=== PATIENT | male | born 1950 | race Caucasian/White ===

== ENCOUNTER 2021-11-29 14:17 | Emergency (ER) | payer MEDICARE, SELFPAY ==
[2021-11-29 14:17] VITALS: BP 178/92; PULSE 73; RESP 16; TEMP 36.8; O2SAT 98; BMI 29.6
[2021-11-29 14:59] LABS: Mucous, Urine 0 SEEN /hpf (<or=2+)
[2021-11-29 15:17] LABS: Color, Urine Yellow (Yellow); Glucose, Dipstick Normal (Normal); Ketone-Dipstick Negative (Negative); Leukocyte Esterase-Dipstick Negative /ul (Negative); Nitrite-Dipstick Negative (Negative); Occult Blood-Urine 250 /ul (Negative); Protein-Dipstick 30 mg/dl (Negative); Specific Gravity, Urine 1.015 (1.002-1.030); Urine Bilirubin Dipstick Negative (Negative); Urine Clarity Clear (Clear); Urine Urobilinogen Normal (Normal)
--- NOTE | 2021-11-29 15:36 | CT_ITS ---
STUDY: CT BRAIN WITHOUT CONTRAST REASON FOR EXAM: Male, 71 years old. injury last week TECHNIQUE: Transaxial CT imaging of the brain was performed without administration of intravenous contrast material. Individualized dose optimization techniques were used for this CT. COMPARISON: None FINDINGS: Normal calvarium. Normal soft tissues. Normal size ventricles and extra-axial spaces for the patient''s age. There are areas of decreased attenuation within the white matter tracts of the supratentorial brain, consistent with microvascular disease changes. Normal basal ganglia and thalami. Normal brainstem. Normal cerebellum. There is no intracranial hemorrhage. There are no findings of an acute ischemic infarction. There is sinus disease. ASPECTS 10 CT/Brain/Head without Contrast IMPRESSION: There are no acute intracranial findings. Electronically Signed: Elia Hwang MD at 16:19 EDT ,
[2021-11-29 15:39] LABS: Red Blood Cells-Urine 10-25 SEEN /hpf (0-5); Squamous Epithelial Cells - UA 0-5 SEEN /hpf (0-5); White Blood Cells 0-5 SEEN /hpf (0-5)
--- NOTE | 2021-11-29 15:39 | EDS_ITS ---
HPI History of Present Illness Chief Complaint: Complaint Detail of Chief Complaint: urinary retention Informant: patient Pain Onset: Today Context: Sudden Onset (when got up to urinate this AM; ur retention, suprapubic pain, low back pain) Timing: Continuous Current Severity: Severe Maximum Severity: Severe Worsened by: nothing Relieved by: nothing Urinary Symptoms Genitourinary Symptoms: Retention Narrative Narrative: Patient woke up this morning unable to urinate. He states for an hour or so he was dribbling only small amounts of urine, still feeling discomfort like he needed to urinate a lot, never had this before. Making good stream of urine recently. [facility] within the last couple years that he may have had an enlarged prostate but he is not sure what that is based on, he did not have a prostate exam or CT scan that he can recall. He denies any recent hematuria. He did get injured on accident 1 week ago tomorrow. Friend was lifting large pieces of wood with a tractor, one of them fell off and hit him in the head. He sustained relatively minor injuries, he states there was bleeding but he did not have any loss of consciousness or neurologic symptoms, he states he cleansed them and allow them to heal on their own without coming to the emergency department. He is on no anticoagulants, just baby aspirin daily in addition to his lisinopril, he he has had no medication changes recently, hospitalizations, or surgeries. [facility] Medical History (Updated 11/29/21 @ 17:[address] Arturo Avila MD) HTN (hypertension) Home Medications aspirin 81 mg capsule 81 mg PO DAILY 11/29/21 [History Last Taken Unknown] lisinopril 20 mg tablet 20 mg PO DAILY 11/29/21 [History Last Taken Unknown] tamsulosin 0.4 mg capsule (Flomax) 0.4 mg PO DAILY #30 caps 11/29/21 [Rx Last Taken Unknown] Allergy/AdvReac Type Severity Reaction Status Date / Time No Known Allergies Allergy Verified 11/29/21 14:46 Social History Smoking Status: Current every day smoker tobacco type: cigarettes ROS ROS ED Constitutional Constitutional ED: Denies chills or fever(s) Eyes Eyes: Denies change in vision or diplopia ENT ENT ED: Denies rhinorrhea or sore throat Cardiovascular Cardiovascular: Denies chest pain or palpitations Respiratory/Chest Respiratory/Chest: Denies cough or dyspnea Gastrointestinal Gastrointestinal: Reports abdominal pain; Denies diarrhea, nausea or vomiting Genitourinary Genitourinary ED: Reports as per HPI and urinary incontinence; Denies dysuria or hematuria Musculoskeletal Musculoskeletal: Reports back pain; Denies neck pain Integumentary Denies abscess or rash Neurologic Neurologic: Denies headache(s), paresthesias or weakness Psychiatric Psychiatric: Denies anxiety or suicidal thoughts EXAM Physical Exam Const Vital Signs: 11/29/21 14:17 11/29/21 17:08 Temperature 98.3 F 97.3 F L Temperature Source Temporal Temporal Pulse Rate 73 68 Respiratory Rate 16 15 Blood Pressure 178/92 H 152/90 H Blood Pressure Mean 120 110 Pulse Ox 98 100 Oxygen Delivery Method Room Air Room Air Positive well nourished and well developed Constitutional Narrative: Well-appearing. Seen after Rodriguez placed. General Appearance ED: well developed and NAD HEENT Reports moist mucous membranes normocephalic and atraumatic Eyes PERRL and EOMs intact bilaterally Neck full ROM and supple Resp normal respiratory effort and clear to auscultation bilaterally Cardio regular rate, regular rhythm and no murmurs GI non-tender and non-distended Auscultation: normoactive bowel sounds Palpation: soft Back/Spine no CVA tenderness General Back: other FROM Extremity normal to inspection General Extremety ED: Negative for edema, pulses abnormal or tenderness General Extremity: Negative for edema or pulses abnormal Neuro oriented x3, CN's II-XII intact bilaterally and no sensory deficits noted Sensorium / Orientation: awake and alert Motor Exam: strength 5/5 throughout Skin no rashes or lesions noted and no wounds MDM MDM MDM Narrative Medical decision making narrative: Nursing placed a Rodriguez just prior to my seeing the patient, he has 1 L of transparent nonbloody yellow urine in the bag and he states he feels much better and his symptoms are resolved. Urinalysis shows no infection. There is microscopic hematuria of unknown significance. Given all this, he does not have symptoms of enlarged prostate or prostatitis, so I added basic labs and a CT of the head to rule out intracranial injury or other pathology such as normal pressure hydrocephalus. Are all unremarkable. For this reason and given the patient a leg bag and a prescription for Flomax, discussed with urology Dr. Cast; he agreed with this. Lab Data Attestation: I reviewed the patient's lab results. Labs: Laboratory Results - last 24 hr 11/29/21 11/29/21 11/29/21 14:55 15:50 15:50 WBC 11.8 H RBC 4.74 Hgb 15.7 Hct 45.1 MCV 95.1 H MCH 33.1 H MCHC 34.8 RDW Std Deviation 43.2 RDW Coeff of Angelika 12.4 Plt Count 217 MPV 9.0 Immature Gran % (Auto) 0.300 Neut % (Auto) 78.3 H Lymph % (Auto) 12.0 L [place] % (Auto) 8.8 Eos % (Auto) 0.3 Baso % (Auto) 0.3 Absolute Neuts (auto) 9.2 H Absolute Lymphs (auto) 1.42 Nucleated RBC % 0 Sodium 142 Potassium 4.1 Chloride 111 H Carbon Dioxide 26.0 Anion Gap 5 BUN 13 Creatinine 1.17 Estim Creat Clear Calc 56.84 Est GFR (MDRD) Af Amer 79 Est GFR (MDRD) Non-Af 66 BUN/Creatinine Ratio 11.1 Glucose 106 Calcium 9.0 Urine Color Yellow Urine Clarity Clear Urine pH 6.0 Ur Specific [place] 1.015 Urine Protein 30 H Urine Glucose (UA) Normal Urine Ketones Negative Urine Occult Blood 250 H Urine Nitrite Negative Urine Bilirubin Negative Urine Urobilinogen Normal Ur Leukocyte Esterase Negative Urine RBC 10-25 SEEN Urine WBC 0-5 SEEN Ur Squamous Epith Cells 0-5 SEEN Urine Bacteria RARE Urine Mucus 0 SEEN Radiography Diagnostic Testing: Clinical Impression(s) from Imaging Studies Brain CT 11/29/21 15:36 IMPRESSION: There are no acute intracranial findings. Electronically Signed: Elia Hwang MD at 16:19 EDT Reading Location ID and State: [facility] / MD , Service support , Discharge Plan Triage Chief Complaint: Complaint ED Provider: Arturo Avila Dx/Rx/DC Orders Clinical Impression: Acute urinary retention, Closed head injury without loss of consciousness Instructions: ED Urinary Retention, Male Prescriptions: New tamsulosin [Flomax] 0.4 mg capsule 0.4 mg PO DAILY Qty: 30 0RF No Action lisinopril 20 mg Tablet 20 mg PO DAILY aspirin 81 mg Capsule 81 mg PO DAILY Primary Care Provider: Care Physician,No Primary Referrals: Braulio Cast MD [Med Staff - Active Staff] - 1 Week (or the [place]) Care Physician,No Primary [Primary Care Provider] - Disposition Disposition: Home, Self Care
[2021-11-29 15:40] LABS: Bacteria RARE /hpf (None Seen)
[2021-11-29 16:03] LABS: Absolute Lymphocyte Count 1.42 X10^3/uL (0.83-4.51); Absolute Neutrophil Count 9.2 X10^3/uL (2.0-7.7); Basophil# 0.04 X10^3/uL; Basophil% 0.3 % (0-1); Eosinophil# 0.04 X10^3/uL; Eosinophils% 0.3 % (0-5); Hematocrit 45.1 % (40-54); Hemoglobin 15.7 g/dL (13.0-16.5); Lymphocyte # 1.42 X10^3/ul (0.83-4.51); Mean Corp Hgb Conc 34.8 g/dL (32-36); Mean Corpuscular Hgb 33.1 pg (27.0-32.0); Mean Corpuscular Volume 95.1 fL (80-94); Monocyte# 1.04 X10^3/uL; Monocyte% 8.8 % (0-10); NRBC Flagged by Analyzer 0 % (0-5); Neutrophil # 9.22 X10^3/uL (2.7-7.7); Neutrophil % 78.3 % (47-70); Platelet Count 217 K/mm3 (150-450); RBC Distribution Width CV 12.4 % (11.6-14.6); RBC Distribution Width SD 43.2 fl (35.1-43.9); Red Blood Count 4.74 M/mm3 (4.6-6.2); White Blood Count 11.8 K/mm3 (4.4-11.0)
[2021-11-29 16:20] LABS: Anion Gap 5 (5-15); BUN 13 mg/dL (7-18); BUN/Creat Ratio 11.1 RATIO (10-20); Chloride 111 mmol/L (98-107); Creatinine, Serum 1.17 mg/dL (0.70-1.30); EST Glomerular Filtration Rate 66 mL/min (>60); Est Glom Filt Rate - Afr Amer 79 mL/min (>60); Estimated Creatinine Clearance 56.84 ml/min; Glucose 106 mg/dL (74-106); Potassium 4.1 mmol/L (3.5-5.1); Sodium Level 142 mmol/L (136-145)
[2021-11-29 17:08] VITALS: BP 152/90; PULSE 68; RESP 15; TEMP 36.3; O2SAT 100
[2021-11-29 18:17] VITALS: BP 162/89; PULSE 69; RESP 17; TEMP 36.3; O2SAT 99
== END 2021-11-29 18:19 | disposition home or self-care (01) ==
PROVIDERS: Emergency Provider Emergency Medicine; Visit Provider Emergency Medicine
DX: R33.9 Retention of urine, unspecified (principal); S09.90XA Unspecified injury of head, initial encounter; R31.29 Other microscopic hematuria; I10 Essential (primary) hypertension; R10.2 Pelvic and perineal pain; F17.210 Nicotine dependence, cigarettes, uncomplicated; W22.8XXA Striking against or struck by other objects, initial encounter
CPT/HCPCS: 51702; 70450; 80048; 81001; 85025; 99283; A4216

== ENCOUNTER 2021-12-24 12:06 | Observation (INO) | payer MEDICARE, SELFPAY ==
[2021-12-24] VITALS (9 sets, daily range): BP systolic 89–128; BP diastolic 57–77; PULSE 54–77; RESP 16–18; TEMP 36.1–36.7; O2SAT 95–100; BMI 29.7
--- NOTE | 2021-12-24 08:42 | EKG12_ITS ---
Test Reason : PRE-OP Blood Pressure : / mmHG Vent. Rate : 070 BPM Atrial Rate : 070 BPM P-R Int : 094 ms QRS Dur : 084 ms QT Int : 408 ms P-R-T Axes : 067 036 056 degrees QTc Int : 440 ms Sinus rhythm with short OR Otherwise normal ECG When compared with ECG of 13-AUG-2013 00:05, No significant change was found Confirmed by TENZIN CHAIREZ, CLIFTON ([id number]), script editor SAMMY MONSIVAIS ([id number]) on 12/31/2021 12:44:07 PM Referred By: Braulio Cast Confirmed By:CLIFTON DAVE MD
[2021-12-24] MEDS: Lactated Ringers 1,000 ML 15 ML IV ×2 (08:50→13:00)
--- NOTE | 2021-12-24 10:40 | PROS_PTH ---
PATIENT: VIC IBARRA LOC: [facility]3 U#:[id number] AGE/SX: 71/M [place] [facility] [place]24/[address]: Dr. Braulio Cast MD : 1950 BED: 1 DIS: 12/25/2021 SPEC #: [id number] RECD: 12/24/21 13:43 STATUS: LUCIO CHINCHILLADillan #: [id number] AUGUSTINE: 12/24/21 10:[address]: Braulio Cast DEPT: SURGICAL PATHOLOGY RECD BY: Denia Marshall ENTERED: 12/27/21 08:40 SP TYPE: TURP OT DR: No Primary Care Phys Tissues: Prostate, NOS Procedures: Surgery Specimen Level IV HEADER OPERATION: Cysto, TUR prostate, [place], litholopaxy of bladder stones PRE-OP DIAGNOSIS: BPH and bladder stones TISSUE SUBMITTED: Prostate tissue and bladder stones MICROSCOPIC DIAGNOSIS Prostate tissue and bladder stone, transurethral resection: Benign prostatic hyperplasia, glandular and stromal type. Focal chronic inflammation. Fragments of stone, clinically bladder stones (gross only). HEENA:shantell 12/28/2021 MICROSCOPIC DESCRIPTION Slides are reviewed. GROSS DESCRIPTION Received is one container labeled with the patient's name and designated prostate tissue and bladder stones. The specimen consists of multiple irregular fragments of pink-pascal, rubbery, soft tissue that in aggregate weigh 24.8 gm and measure in aggregate 7 x 5 x 2.5 cm. Multiple fragments of brown stones measuring 0.1 to 0.7 cm are also noted. Rug Cutter Helper tissue is submitted in ten cassettes. / HEENA:shantell 12/27/2021 TC:5 CPT: 33906
--- NOTE | 2021-12-24 12:09 | DCINST_ITS ---
Discharge Instructions Diet Discharge Diet: No restrictions, Light diet - advance as tolerated and Soft diet Activity Discharge Activity: Return to Normal Activity Follow Up Care Please Follow Up With: Braulio Cast MD When: 2 weeks Test Results: Test results from this visit will be discussed in further detail at your follow- up appointment, if applicable. Discharge Plan Admission Primary Reason for Your Visit: turp Attending Provider: Braulio Cast Primary Care Provider: Care Physician,No Primary Instructions Patient Instructions: TURP Home Recovery Discharge Orders/Prescriptions Prescriptions: New ciprofloxacin HCl [Cipro] 500 mg tablet 500 mg PO BID Qty: 14 0RF Continued lisinopril 20 mg Tablet 20 mg PO DAILY Held aspirin 81 mg Capsule 81 mg PO DAILY Hold Instructions: Resume on 01/07/22. Discontinued dutasteride 0.5 mg Capsule 0.5 mg PO QHS tamsulosin [Flomax] 0.4 mg capsule 0.4 mg PO QHS Referrals / Follow Up: Braulio Cast MD [Med Staff - Active Staff] - Care Physician,No Primary [Primary Care Provider] - Disposition Disposition (needs filled in before D/C Order can be placed): Home, Self Care
--- NOTE | 2021-12-24 12:09 | PCM.HP.STD ---
HPI - General General Date of Service: 12/24/21 HPI Narrative VIC IBARRA, is a 71 M who presents for transurethral resection of the prostate he has a history of retention of urine with a catheter renal resected prostate hopefully open up the channel he understands no guarantees ability urinate after the surgery and he may need to learn self-catheterization. [facility] Medical History (Updated 12/21/21 @ 15:17 by Jennifer Hamilton) Alcohol use Arthritis HTN (hypertension) Indwelling urethral catheter present Leg cramps Prostate disease Smoker Wears dentures Wears glasses Home Medications aspirin 81 mg capsule 81 mg PO DAILY 11/29/21 [History Last Taken 12/17/21] lisinopril 20 mg tablet 20 mg PO DAILY 11/29/21 [History Last Taken 12/24/21] ciprofloxacin HCl 500 mg tablet (Cipro) 500 mg PO BID #14 tabs 12/24/21 [Rx Last Taken Unknown] Allergy/AdvReac Type Severity Reaction Status Date / Time No Known Allergies Allergy Verified 12/24/21 08:56 Surgical History (Updated 12/21/21 @ 15:17 by Jennifer Hamilton) Hx of arthroscopy of right knee Social History Smoking Status: Current some day smoker tobacco type: cigars Vital Signs Vital Signs Vital Signs: 12/24/21 08:59 12/24/21 08:59 Temperature 98.1 F Temperature Source Temporal Pulse Rate 70 Respiratory Rate 16 Respiratory Pattern Normal Blood Pressure 122/73 H Blood Pressure Mean 89 Blood Pressure Source Monitor Blood Pressure Position Semi-Fowlers Blood Pressure Location Right Arm Pulse Ox 98 Oxygen Delivery Method Room Air Weight Weight: 86.183 kg Body Mass Index (BMI) 29.7
--- NOTE | 2021-12-24 12:10 | OP.PCM_ITS ---
Report of Operation Date of Procedure: 12/24/21 Pre-Operative Diagnosis: bph retention of urine Post-Operative Diagnosis: same Surgery/Procedure Performed:: turp and cystolithalopaxy and laser of large bladder stones Description of Surgical Findings:: In the preoperative setting I discussed with the patient how the surgery would be done with expect afterwards. We discussed how a prostate resection is done and we discussed the risk of the surgery including, bleeding, infection, retrograde ejaculation, changes with ejaculation or intercourse,. We discussed the possibility that the resection of the prostate may not alleviate his urinary symptoms. We discussed the small risk of developing scar tissue along the urethral channel and strictures. We also discussed the chance of the prostate could grow back and he may need further surgery or treatment in the future for prostate problems. Patient was taken back to the operating room, timeout procedure was performed, he was identified and marked and placed on the operating room table. He underwent general anesthesia. He was placed in dorsolithotomy position. Penis and testicles were prepped and draped in usual sterile fashion. The urethra and genitals were prepped and draped in usual sterile fashion. Went into the bladder using a 24 Montserratian cystoscope. We used the laser bridge through the scope for continuous irrigation. Then using the laser bridge we introduced a laser fiber into the bladder and the stone in the bladder was trapped against the back wall. The stone was a very large bladder stone (>2.5cm). The stone was then lasered using laser lithotripsy the small little pieces all the pieces were evacuated on the bladder. After all the stones were removed then the scope was removed there was minimal bleeding. Went into the bladder using the visual obturator with a resectoscope. Once inside the bladder identified the right and left ureteral orifice. I then identified the prostate and the anatomy of the prostate. I marked out the area of the sphincter and the verumontanum was identified. I then proceeded with the prostate resection first resected the median lobe. And then resected the right lobe of the prostate. Then to resect the left lobe of the prostate. I then resected the apical tissue of the prostate. This was a complete resection of all obstructive tissue to improve voiding and relieve obstruction. I then made sure that there was no injury to the sphincter or the verumontanum was still intact. At the end of the resection all the chips were Ellik out of the bladder. I then identified the left and right ureteral orifice and these were confirmed to be in good position and effluxing and not injured. The resectoscope was removed, a 22 Montserratian catheter was placed into the bladder on continuous irrigation. And the urine was fairly light pink color and draining normally. He was taken back to the PACU in good condition. Surgeon: Braulio Cast Type of Anesthesia: General Drains: 22fr [address]
[2021-12-24] MEDS: Cefazolin 2 GM in 0.9% Normal Saline 100 ML IV (12:11)
[2021-12-24] MEDS: 0.9% Saline Lock 10 ML Syringe IV (15:32)
[2021-12-24] MEDS: Ciprofloxacin 500 MG Tablet PO (21:40)
[2021-12-25 02:49] VITALS: BP 108/61; PULSE 68; RESP 16; TEMP 36.3; O2SAT 96
[2021-12-25 06:46] VITALS: BP 103/89; PULSE 71; RESP 16; TEMP 36.4; O2SAT 96
[2021-12-25 09:03] VITALS: BP 112/60; PULSE 63; RESP 16; TEMP 36.6; O2SAT 97
[2021-12-25] MEDS: Ciprofloxacin 500 MG Tablet PO (09:14)
[2021-12-25 13:13] VITALS: BP 123/71; PULSE 62; RESP 18; TEMP 36.5; O2SAT 96
== END 2021-12-25 13:29 | disposition home or self-care (01) ==
LOC: SDC 14:22 → MS3 14:22
PROVIDERS: Admitting Provider Urology; Referring Provider Urology; Visit Provider Urology
PROC: (CPT 52601; principal; 2021-12-24 10:30)
DX: N40.1 Benign prostatic hyperplasia with lower urinary tract symptoms (principal); I10 Essential (primary) hypertension; Z79.82 Long term (current) use of aspirin; R33.8 Other retention of urine; N20.1 Calculus of ureter; Z79.899 Other long term (current) drug therapy; M19.90 Unspecified osteoarthritis, unspecified site; F17.290 Nicotine dependence, other tobacco product, uncomplicated
CPT/HCPCS: 52601; 52318; 00914; 88305; 93005; J7120; A4216; J2405